=== PATIENT | male | born 1970 | race Caucasian/White ===

== ENCOUNTER 2016-05-12 09:38 | Inpatient (IN) | payer MEDICAID ==
[~2016-05-12] VITALS: Ht 182.9 cm; Wt 140.6 kg
[2016-05-12 09:45] VITALS: BP 138/100; PULSE 110; RESP 23; TEMP 98.5; O2SAT 93
--- NOTE | 2016-05-12 09:45 | NUR ---
Placed in room 02 . Placed on cardiac cath lab manager, blood pressure machine and pulse oximeter. To gown for exam. Side rails up. Report given to Blaire.
--- NOTE | 2016-05-12 10:00 | NUR ---
ER at bedside examining patient.
[2016-05-12] MEDS ORDERED: GLU500 PO (10:07)
--- NOTE | 2016-05-12 10:08 | NUR ---
Medication reconciliation completed with information provided by patient. Any prior medication reconciliation on file was reviewed and corrected.
--- NOTE | 2016-05-12 10:18 | NUR ---
Placed on awake overnight monitor, blood pressure machine and pulse oximeter. To gown for exam. Side rails up.
--- NOTE | 2016-05-12 10:21 | NUR ---
pt present ED c/o bilateral lower legs swelling with sob, no acute distress noted. lower extremities edema +2, pedal pulse are strong.
--- NOTE | 2016-05-12 10:23 | NUR ---
# 20 gauge angiocath placed to left hand. Use of asceptic technique. Opsite placed over site. Blood return noted. Blood for lab drawn from site. Flushed with 10 cc of normal saline. No evidence of infiltration noted. Patient tolerated well.
[2016-05-12 10:32] LABS: BASOPHILS # (AUTO) 0.1 K/uL (0.0-0.2); BASOPHILS % (AUTO) 1.1 % (0.0-2.0); EOSINOPHILS # (AUTO) 0.2 K/uL (0.0-0.4); EOSINOPHILS % (AUTO) 2.2 % (0.0-4.0); HEMATOCRIT 49.8 % (36-54); HEMOGLOBIN 15.8 g/dL (14.0-18.0); LYMPHOCYTES # (AUTO) 1.8 K/uL (1.0-5.5); LYMPHOCYTES % (AUTO) 20.9 % (20.5-51.5); MEAN CORPUSCULAR HEMOGLOBIN 30 pg (27-31); MEAN CORPUSCULAR HGB CONC 32 % (32-36); MEAN CORPUSCULAR VOLUME 94 fL (79.0-98.0); MONOCYTES # (AUTO) 0.7 K/uL (0.0-1.0); MONOCYTES % (AUTO) 8.3 % (1.7-9.3); NEUTROPHILS # (AUTO) 5.9 K/uL (1.8-7.7); NEUTROPHILS % (AUTO) 67.5 % (40.0-70.0); PLATELET COUNT (AUTO) 160 K/uL (130-430); RED BLOOD CELL COUNT(AUTO) 5.31 MIL/uL (4.2-6.2); RED CELL DISTRIBUTION WIDTH 14.4 % (9.0-15.0); WHITE BLOOD COUNT (AUTO) 8.7 K/uL (4.8-10.8)
[2016-05-12 10:42] LABS: INR 1.1 (0.80-1.20); PROTHROMBIN TIME 12.3 SECS (9.5-12.5)
--- NOTE | 2016-05-12 10:47 | NUR ---
doppler ultrasound bilateral legs at bed side
[2016-05-12 11:16] LABS: CALCIUM 8.4 mg/dL (8.4-11.0); POTASSIUM 4.6 mmol/L (3.5-5.1)
[2016-05-12 11:45] LABS: ALBUMIN 2.8 g/dL (3.4-4.8); TOTAL BILIRUBIN 1.4 mg/dL (0.0-1.0); TOTAL PROTEIN, SERUM 6.3 g/dL (6.4-8.3)
--- NOTE | 2016-05-12 12:17 | NUR ---
Dr. Gutierrez speaking with pt about plan of care
--- NOTE | 2016-05-12 12:25 | NUR ---
Call placed to Dietary for cardiac diet
[2016-05-12] MEDS ORDERED: FUROSEMIDE 40 MG/4 ML VIAL IVP ONE (12:30)
[2016-05-12] MEDS ORDERED: GLUXR500 PO (12:42)
--- NOTE | 2016-05-12 13:00 | NUR ---
[id number]: Received from ER on a gurney accompanied by the . Diagnosis is CHF. Oriented x4. Shortness of breath noted on exertion with oxygen saturation of 96% on room air. Noted with Edema 3+ on bilateral legs with. Multiple Sores and dried scabs noted on the legs. Oriented to room routine. Call light within reach.
--- NOTE | 2016-05-12 13:00 | NUR ---
Patient will be admitted to care of Dr johnson . Admitted to Tele unit. Will go to room 109A. Belongings list completed. Summary report printed. Report given to Iliana ACEVEDO .
[2016-05-12] MEDS ORDERED: NITROGLYCERIN 1 INCH (GM) OINT. TP ONE (13:15)
[2016-05-12] MEDS ORDERED: NITROGLYCERIN 0.4 MG TAB.SUBL SL PRN (13:15)
[2016-05-12] MEDS ORDERED: ASPIRIN 81 MG TAB.CHEW PO ONE (13:30)
--- NOTE | 2016-05-12 13:30 | NUR ---
Initial physical assessment: patient awake, alert and oriented. Ambulatory. I.V. access patent on saline lock. Multiple dry scab wounds on bilateral lower extremities. Able to make wants and needs known. Needs attended. Call light with in reach.
[2016-05-12 13:34] VITALS: BP 132/98; PULSE 108; RESP 20; TEMP 97.5; O2SAT 96
[2016-05-12] MEDS ORDERED: LISINOPRIL 10 MG TABLET (PRINIVIL) PO ONE (14:15)
--- NOTE | 2016-05-12 14:15 | NUR ---
CONSULT CARDIO CHF HIGH TROPOIN DR DHILLON [phone] DR TRIPLETT NITRIC ACID CONCENTRATOR OPERATOR S/W [employer] EXCHANGE @ [phone]
[2016-05-12 14:20] LABS: BILIRUBIN,URINE NEGATIVE (NEGATIVE); CLARITY/URINE SL HAZY (CLEAR); COLOR,URINE YELLOW (YELLOW); GLUCOSE,URINE 3+ (NEGATIVE); KETONES,URINE 1+ (NEGATIVE); LEUKOCYTE ESTERASE ,URINE NEGATIVE (NEGATIVE); NITRITE, URINE NEGATIVE (NEGATIVE); PROTEIN URINE TRACE (NEGATIVE); UROBILINOGEN,URINE 0.2 (0.2-1.0)
[2016-05-12 14:21] LABS: BLOOD, URINE TRACE (NEGATIVE)
[2016-05-12 14:39] LABS: BACTERIA,URINE RARE /HPF (None Seen); RBC,URINE 0-3 /HPF (0-3); WBC,URINE NONE SEEN /HPF (0-3)
--- NOTE | 2016-05-12 15:30 | NUR ---
rounds: patient resting. no distress noted.
[2016-05-12 16:18] VITALS: BP 131/98; PULSE 105; RESP 18; TEMP 97.9; O2SAT 96
--- NOTE | 2016-05-12 17:30 | NUR ---
BLOOD SUGAR: ACCU CHECK DONE. 413 MG/DL. 12 units novolog given. Informed patient not to eat the dinner but when came back to the room, he was already eating 25% of meal. Informed Dr. Gandhi.
[2016-05-12] MEDS: cefTRIAXone 1 GM in D5W 50 ML IV SCH (17:52)
[2016-05-12] MEDS: INSULIN ASPART 100 UNITS/ML, 10 ML VIAL (NovoLOG) SUBCUT PRN ×2 (18:07→21:21)
--- NOTE | 2016-05-12 18:50 | NUR ---
closing notes: pt on bed. no distress noted. i.v. access patent. call light within reach. report will be given at bedside.
[2016-05-12 20:01] LABS: THYROID STIMULATING HORMONE 1.16 uIu/mL (0.34-4.82)
--- NOTE | 2016-05-12 20:20 | NUR ---
MD/RN ROUNDS PATIENT SITTING UP IN BED, AOX4, VITALS STABLE. DENIES ANY PAIN OR DISCOMFORT AT THIS TIME. DR. TRIPLETT AT PATIENT'S BEDSIDE. IOANA PIERCE MADE AWARE OF PATIENT'S SECOND TROPONIN BEING ELEVATED, STATES NO NEED TO CALL HIM FOR FURTHER ELEVATED TROPONIN IN THE FUTURE.
[2016-05-12 21:00] VITALS: BP 120/80; PULSE 116; RESP 20; TEMP 96.8; O2SAT 92
[2016-05-12] MEDS ORDERED: INSULIN GLARGINE 100 UNITS/ML 10 ML VIAL SUBCUT SCH (21:00)
[2016-05-12] MEDS: FUROSEMIDE 40 MG/4 ML VIAL IVP SCH (21:13)
[2016-05-12] MEDS: CARVEDILOL 6.25 MG TABLET (COREG) PO SCH (21:14)
--- NOTE | 2016-05-12 22:08 | NUR ---
RN ROUNDS PATIENT RESTING QUIETLY IN BED, DUE MEDICATIONS ADMINISTERED. EDUCATED ON NEW MEDICATIONS AND SIDE EFFECTS, VERBALIZED UNDERSTANDING. BLOOD SUGAR CHECK THIS PM 357. INSULIN COVERED PER MD ORDER. REINFORCED SAFETY MEASURES TO PATIENT, CALL LIGHT WITHIN REACH, WILL CONTINUE TO MONITOR.
--- NOTE | 2016-05-13 00:05 | NUR ---
RN ROUNDS PATIENT SLEEPING, RESPIRATIONS EVEN AND UNLABORED. VITALS STABLE. SAFETY MEASURES IN PLACE. CALL LIGHT WITHIN REACH, WILL MONITOR.
[2016-05-13 00:15] VITALS: BP 112/49; PULSE 111; RESP 18; TEMP 97.4; O2SAT 94
--- NOTE | 2016-05-13 01:51 | NUR ---
RN ROUNDS PATIENT AWAKE, SITTING UP IN BED. NO SOB NOTED. REQUESTING FOR HS SNACK, NEEDS ATTENDED TO. SAFETY MEASURES IN PLACE. CALL LIGHT REMAINS WITHIN REACH, WILL CONTINUE TO MONITOR.
[2016-05-13 03:31] LABS: CALCIUM 8.8 mg/dL (8.4-11.0); CREATININE 1.29 mg/dL (0.55-1.30); POTASSIUM 3.9 mmol/L (3.5-5.1)
--- NOTE | 2016-05-13 04:08 | NUR ---
RN ROUNDS PATIENT SLEEPING, RESPIRATIONS EVEN AND UNLABORED. NO DISTRESS NOTED. VITALS STABLE. SAFETY MEASURES MAINTAINED. CALL LIGHT REMAINS WITHIN REACH, WILL CONTINUE TO MONITOR.
[2016-05-13 04:14] VITALS: BP 101/66; PULSE 100; RESP 20; TEMP 97.9; O2SAT 94
[2016-05-13] MEDS: ACETAMINOPHEN 325 MG TABLET PO PRN (05:51)
--- NOTE | 2016-05-13 06:20 | NUR ---
RN ROUNDS PATIENT AWAKE, NO SOB NOTED. C/O OF A HEADACHE, TYLENOL 650 MG ADMINISTERED. BLOOD SUGAR CHECK THIS AM 198. PATIENT REFUSED INSULIN PER SLIDING SCALE AT THIS TIME. STATES HE WANTS TO EAT BREAKFAST FIRST BEFORE INSULIN. SAFETY MEASURES MAINTAINED, CALL LIGHT REMAINS WITHIN REACH, WILL CONTINUE TO MONITOR.
[2016-05-13 06:30] LABS: BASOPHILS % (AUTO) 0.2 % (0.0-2.0); EOSINOPHILS # (AUTO) 0.3 K/uL (0.0-0.4); EOSINOPHILS % (AUTO) 3.4 % (0.0-4.0); HEMATOCRIT 45.7 % (36-54); HEMOGLOBIN 14.6 g/dL (14.0-18.0); LYMPHOCYTES # (AUTO) 1.8 K/uL (1.0-5.5); LYMPHOCYTES % (AUTO) 22.8 % (20.5-51.5); MEAN CORPUSCULAR HEMOGLOBIN 30 pg (27-31); MEAN CORPUSCULAR HGB CONC 32 % (32-36); MEAN CORPUSCULAR VOLUME 95 fL (79.0-98.0); MONOCYTES # (AUTO) 0.9 K/uL (0.0-1.0); MONOCYTES % (AUTO) 10.9 % (1.7-9.3); NEUTROPHILS # (AUTO) 4.9 K/uL (1.8-7.7); NEUTROPHILS % (AUTO) 62.7 % (40.0-70.0); PLATELET COUNT (AUTO) 159 K/uL (130-430); RED BLOOD CELL COUNT(AUTO) 4.82 MIL/uL (4.2-6.2); WHITE BLOOD COUNT (AUTO) 7.9 K/uL (4.8-10.8)
[2016-05-13 07:35] VITALS: BP 95/73; PULSE 103; RESP 18; TEMP 97.8
--- NOTE | 2016-05-13 08:00 | NUR ---
AM ASSESSMENT RECEIVED PT IN BED . A/OX4 DENIES ANY SOB OR CHEST PAIN. VITALS STABLE NOT IN ACUTE DISTRESS. SAFETY AND FALL RESCAUTIONES MAINTAINED. RES EVEN AND UNLABORED. CALLIGHT WITH IN REACH
[2016-05-13] MEDS: FAMOTIDINE 20 MG TABLET PO SCH (08:57)
[2016-05-13] MEDS: ASPIRIN 81 MG TAB.CHEW PO SCH (08:57)
[2016-05-13] MEDS: SPIRONOLACTONE 25 MG TABLET (ALDACTONE) PO SCH (08:58)
[2016-05-13] MEDS: LISINOPRIL 10 MG TABLET (PRINIVIL) PO SCH (08:58)
[2016-05-13] MEDS: FUROSEMIDE 40 MG/4 ML VIAL IVP SCH ×2 (08:59→21:10)
[2016-05-13] MEDS: CARVEDILOL 6.25 MG TABLET (COREG) PO SCH (09:04)
--- NOTE | 2016-05-13 10:00 | NUR ---
MEDS DUE MEDS GIVEN ORDERED. NOT IN ACUTE DISTRESS
[2016-05-13 12:00] VITALS: BP 105/71; PULSE 94; RESP 20; TEMP 96.8; O2SAT 94
--- NOTE | 2016-05-13 12:00 | NUR ---
BLOOD SUGAR BS 311. INSULIN GIVEN PER SS ORDERED. SEE EMAR. PT RESTING COMOFRTABLY
[2016-05-13] MEDS: INSULIN ASPART 100 UNITS/ML, 10 ML VIAL (NovoLOG) SUBCUT PRN ×3 (12:11→21:19)
[2016-05-13] MEDS ORDERED: IPRATROPIUM/ALBUTEROL SULFATE 3 ML AMPUL.NEB INH PRN (13:00)
--- NOTE | 2016-05-13 15:00 | NUR ---
MD VISIT SEEN BY DR FIORE AND DR VASQUEZ. NEW ORDER RECEIVED. PT STABLE . NO S/S OF DISTRESS NOTED
[2016-05-13] MEDS: cefTRIAXone 1 GM in D5W 50 ML IV SCH (15:07)
--- NOTE | 2016-05-13 15:25 | NUR ---
Wound Evaluation: Late note for 152 secondary to patient care. Wound Consult received from Dr. Gandhi. Thank you, Dr. Gandhi, for the consult. Patient received in a [place] bed with an Atmos-Air 9000 Mattress, awake, alert, oriented x 4. Skin is fair. Patient is able to turn in bed and ambulate independently. Juni score is a 20. Past Medical History: Diabetes Mellitus, on Metformin, status post Appendectomy. Recent labs: BUN 23, Creat 1.29, GFR 63, Gluc 197, BNP 274, PTT 22.4, D-Dimer 781, Trop 0.150/0.150/0.060. Intrinsic factors that delay wound healing: Diabetes Mellitus. Extrinsic factors that delay wound healing: Decreased mobility. No microbiology reports. Wound Assessment: 1) Left Lower Extremity: Multiple wounds with dry, black eschar/scabs. Dry, stable. No calor, no odor, no drainage. Dry, stable. 2) Right Lower Extremity: Multiple wounds with dry, black eschar/scabs. Dry, stable. No calor, no odor, no drainage. Dry, stable. Recommend: No dressings needed. Continue to monitor sites for opening or worsening condition. Contact wound career center advisor if wounds open or worsen. Also recommend: Encourage and assist patient as needed with repositioning every two hours with pillow support, and off-load pressure areas with pillows for pressure re-distribution. Offload, elevate and float bilateral heels with pillows. Perform skin care and monitor skin integrity q shift.
[2016-05-13] MEDS ORDERED: METOLAZONE 5 MG TABLET PO ONE (15:30)
[2016-05-13 16:43] VITALS: BP 103/77; PULSE 99; RESP 20; TEMP 96.4; O2SAT 95
--- NOTE | 2016-05-13 17:30 | NUR ---
BLOOD SUGAR BS 329. INSULIN GIVE PER SS. SEE EMAR. PT RESTING COMFORTABLY. DENIES PAIN OR SOB AT THIS TIME. FAMILY AT BED SIDE
--- NOTE | 2016-05-13 19:30 | NUR ---
closing notes pt stable. resting comfortably. no s/s of res distress noted. res even and labored. call light within reach. report given to edenilson rodriguez
[2016-05-13 20:00] VITALS: BP 125/81; PULSE 71; RESP 20; TEMP 97.8; O2SAT 94
--- NOTE | 2016-05-13 20:00 | NUR ---
RN ROUNDS PATIENT RESTING QUIETLY IN BED, RESPIRATIONS EVEN AND UNLABORED. NO SOB NOTED. ON ROOM AIR. VITALS STABLE. DENIES ANY PAIN OR DISCOMFORT AT THIS TIME. IV LINE TO LEFT HAND INTACT AND PATENT, NO SIGNS OF INFILTRATION NOTED. POC DISCUSSED WITH PATIENT. VERBALIZED UNDERSTANDING. CALL LIGHT WITHIN REACH, SAFETY MEASURES IN PLACE, WILL MONITOR.
[2016-05-13] MEDS: CARVEDILOL 12.5 MG TABLET (COREG) PO SCH (21:10)
[2016-05-13] MEDS ORDERED: CARVEDILOL 12.5 MG TABLET (COREG) ONE (21:11)
[2016-05-13] MEDS ORDERED: FUROSEMIDE 40 MG/4 ML VIAL ONE (21:11)
--- NOTE | 2016-05-13 22:00 | NUR ---
RN ROUNDS PATIENT RESTING QUIETLY IN BED, DUE MEDICATIONS ADMINISTERED EARLIER. WAS C/O OF SOB, RT WAS AT BEDSIDE ADMINISTERING BREATHING TX. BLOOD SUGAR CHECK THIS PM 352. INSULIN COVERED PER MD ORDER. REINFORCED SAFETY MEASURES TO PATIENT, VERBALIZED UNDERSTANDING. CALL LIGHT WITHIN REACH, WILL CONTINUE TO MONITOR.
--- NOTE | 2016-05-13 22:30 | NUR ---
notes; received report from Renetta ACEVEDO. Pt appeared to to be sleeping, eyes closed. Respiration even and unlabored. Safety measures in progress.
[2016-05-14] VITALS (8 sets, daily range): BP systolic 97–149; BP diastolic 59–99; PULSE 46–103; RESP 17–20; TEMP 97.2–98; O2SAT 92–100; Ht 182.9 cm; Wt 140.6 kg
--- NOTE | 2016-05-14 00:05 | NUR ---
NOTES; PT CALLED WITH C/O SOB. CHECKED ON PT. VITAL SIGNS STABLE, SAT 97% ON ROOM AIR. APPEARS TO BE COMFORTABLE. SAFETY MEASURES IN PROGRESS.
[2016-05-14] MEDS ORDERED: IPRATROPIUM/ALBUTEROL SULFATE 3 ML AMPUL.NEB ONE (00:23)
--- NOTE | 2016-05-14 02:10 | NUR ---
AWAKE, AMBULATING IN HALLWAY WITH BARE FEET. PT REFUSED NONSKID SOCKS. DENIES ANY PAIN AT THIS TIME. SAFETY MEASURES IN PROGRESS.
--- NOTE | 2016-05-14 04:37 | NUR ---
NOTES; AWAKE, IN BED. NO ACUTE DISTRESS NOTED. O2 SAT 96%. 3+ PITTING EDEMA TO BENI LEGS. PT CONTINUE TO DRINK LOTS OF WATER. ADVISED PT TO MINIMIZE THE WATER INTAKE. PER PT" MY DOCTOR SAID I SHOULD DRINK LOTS OF WATER SO DO I LISTEN TO YOU OR MY DOCTOR" " I WILL LISTEN TO MY DOCTOR". RN COVERING NOTIFIED. PT REFUSED BENI LOWER EXT TO BE ELEVATED ON PILLOW SUPPORT. SAFETY MEASURES IN PROGRESS.
[2016-05-14 07:16] LABS: BASOPHILS % (AUTO) 0.3 % (0.0-2.0); EOSINOPHILS # (AUTO) 0.3 K/uL (0.0-0.4); EOSINOPHILS % (AUTO) 3.4 % (0.0-4.0); HEMOGLOBIN 15.3 g/dL (14.0-18.0); LYMPHOCYTES # (AUTO) 2.5 K/uL (1.0-5.5); LYMPHOCYTES % (AUTO) 27.7 % (20.5-51.5); MEAN CORPUSCULAR HEMOGLOBIN 30 pg (27-31); MEAN CORPUSCULAR HGB CONC 32 % (32-36); MEAN CORPUSCULAR VOLUME 94 fL (79.0-98.0); MONOCYTES % (AUTO) 11.7 % (1.7-9.3); NEUTROPHILS # (AUTO) 5.1 K/uL (1.8-7.7); NEUTROPHILS % (AUTO) 56.9 % (40.0-70.0); PLATELET COUNT (AUTO) 182 K/uL (130-430); RED BLOOD CELL COUNT(AUTO) 5.08 MIL/uL (4.2-6.2); RED CELL DISTRIBUTION WIDTH 14.5 % (9.0-15.0); WHITE BLOOD COUNT (AUTO) 8.9 K/uL (4.8-10.8)
[2016-05-14 07:27] LABS: CALCIUM 8.6 mg/dL (8.4-11.0); CREATININE 1.31 mg/dL (0.55-1.30); POTASSIUM 3.6 mmol/L (3.5-5.1)
--- NOTE | 2016-05-14 07:30 | NUR ---
am rounds; report given by dariana at bedside. patient on the bed,awake,alert and oriented x4. iv saline lock at left hand intact. no sob this time. still with bilateral lower extremities swelling noted. continue to monitor.
[2016-05-14 07:33] LABS: ALBUMIN 2.9 g/dL (3.4-4.8); TOTAL BILIRUBIN 0.8 mg/dL (0.0-1.0); TOTAL PROTEIN, SERUM 6.1 g/dL (6.4-8.3)
[2016-05-14] MEDS: METOLAZONE 5 MG TABLET PO SCH (09:00)
[2016-05-14] MEDS: LISINOPRIL 10 MG TABLET (PRINIVIL) PO SCH (09:00)
--- NOTE | 2016-05-14 09:20 | NUR ---
meds/gtube: no residuals prior to giving meds. flushed with water after giving crushed meds. well tolerated. Addendum: 05/14/16 at 1144 by Doris Johnson RN corrected above notes: not intended for the above patient.
--- NOTE | 2016-05-14 10:10 | NUR ---
meds: took his meds well. lisinopril and xarosyln po not given low bp.
[2016-05-14] MEDS: ASPIRIN 81 MG TAB.CHEW PO SCH (10:18)
[2016-05-14] MEDS: FAMOTIDINE 20 MG TABLET PO SCH (10:18)
[2016-05-14] MEDS: SPIRONOLACTONE 25 MG TABLET (ALDACTONE) PO SCH (10:20)
[2016-05-14] MEDS: FUROSEMIDE 40 MG/4 ML VIAL IVP SCH ×2 (10:21→21:26)
[2016-05-14] MEDS: CARVEDILOL 12.5 MG TABLET (COREG) PO SCH ×2 (10:22→21:28)
[2016-05-14] MEDS: INSULIN ASPART 100 UNITS/ML, 10 ML VIAL (NovoLOG) SUBCUT PRN ×3 (11:19→21:35)
--- NOTE | 2016-05-14 11:30 | NUR ---
blood sugar: blood sugar taken,with insulin coverage given per sliding scale.
--- NOTE | 2016-05-14 12:15 | NUR ---
MEAL: LUNCH SERVED BY PROCESS DEVELOPMENT ENGINEER. EATING ADEQUATELY.
--- NOTE | 2016-05-14 13:55 | NUR ---
VS: C/O FAINTING.PT SITTING ON THE BED. ELIZABETH RN PLACED PT ON THE BED,VITAL SIGNS TAKEN,AFEBRILE AND STABLE. SAFETY MEASURES RENDERED. BED ALARM ON.
--- NOTE | 2016-05-14 14:25 | NUR ---
ROUNDS: PATIENT SLEEPING. STABLE.
[2016-05-14] MEDS: cefTRIAXone 1 GM in D5W 50 ML IV SCH (14:43)
--- NOTE | 2016-05-14 15:40 | NUR ---
ROUNDS: PATIENT SLEEPING DURING ROUNDS. STABLE.
--- NOTE | 2016-05-14 17:00 | NUR ---
blood sugar: blood sugar taken,with insulin coverage given per sliding scale.
--- NOTE | 2016-05-14 18:40 | NUR ---
closing notes: patient ate dinner. stable. needs attended to.
--- NOTE | 2016-05-14 20:00 | NUR ---
NOTES; PT IS SITTING UP IN CHAIR, WATCHING TV . NO SOB NOTED, VITAL SIGNS STABLE, AFEBRILE. RESPIRATIONS EVEN AND UNLABORED. PT IS ON ROOM AIR. DRY SCABS TO BENI LOWER EXT NOTED. 4+ PITTING EDEMA TO BENI LOWER EXT. LEG IS COLD AND TIGHT. ADVISED PT TO ELEVATE FEET WHILE SITTING UP RIGHT BUT PT REFUSED. IV SALINE LOCK TO THE LEFT HAND, GAUGE 20, PATENT. DENIES ANY PAIN OR DISCOMFORT AT THIS TIME. INSTRUCTED PT ON THE USE OF CALL LIGHT TO CALL FOR ANY NEED TO ASSIST. PT VERBALIZED UNDERSTANDING. BSAFETY MEASURES IN PROGRESS. CALL LIGHT AND BEDSIDE TABLE WITHIN REACH, WILL MONITOR.
[2016-05-14] MEDS: ACETAMINOPHEN 325 MG TABLET PO PRN (21:42)
--- NOTE | 2016-05-14 21:43 | NUR ---
NOTES; PT C/O 06/18 HEADACHE, TYLENOL 650MG O ADMINISTERED ALONG WITH SCHEDULED PO MEDICINE. BLOOD SUGAR FOUND TO BE 311. SCHEDULED AND SLIDING SCALE INSULIN ADMINISTERED ORDERED. WILL CONTINUE TO MONITOR. SNACK OF 1/2 SANDWICH ADMINISTERED PER PT REQUEST. WILL CONTINUE TO MONITOR.
--- NOTE | 2016-05-14 22:50 | NUR ---
NOTES; PT IS IN BED WATCHING TV. NO ACUTE DISTRESS NOTED. STATED EFFECTIVE PAIN MEDICATION.
--- NOTE | 2016-05-14 23:00 | NUR ---
NOTES; PT WALKED UP TO NURSES STATION WITHOUT CALLING OR USING CALL CORTES. PT STATED I DON'T FEEL WELL. BP CHECKED AND FOUND TO BE 110/70, HR 94, O2 SAT 92%. PT WANTED TO TALK. QUESTIONS ANSWERED . DENIES ANY PAIN AT THIS TIME. IN BED AT THIS TIME. REMINDED PT TO USE CALL LIGHT TO CALL FOR ANY NEED TO ASSIST. PT VERBALIZED UNDERSTANDING. SIDE TABLE AND URINAL WITHIN REACH. SAFETY MEASURES IN PROGRESS.
[2016-05-15] VITALS (7 sets, daily range): BP systolic 95–138; BP diastolic 52–87; PULSE 65–102; RESP 16–20; TEMP 96.7–97.4; O2SAT 88–99
--- NOTE | 2016-05-15 | NUR ---
NOTES; SITTING IN BED WATCHING TV. NO ACUTE DISTRESS NOTED. SAFETY MEASURES IN PROGRESS. WILL CONTINUE TO MONITOR.
--- NOTE | 2016-05-15 02:22 | NUR ---
NOTES; AWAKE, SNACK OF SANDWICH AND PUDDING SUGAR FREE PROVIDED. PT ATE 100%. NO APPARENT DISTRESS. DENIES ANY PAIN AT THIS TIME. SAFETY MEASURES IN PROGRESS.
--- NOTE | 2016-05-15 04:15 | NUR ---
NOTES; PT WALKED UP TO NURSES STATION WITHOUT CALLING OR USING CALL CORTES., ANDREA FEET. PT REFUSED NONSKID SOCKS. PT STATED I THINK I CANT BREATH. O2 SAT 90-91%. PT ASKED MANY QUESTION ABOUT GOING HOME, AND MEDS HE WILL TAKE HOME. QUESTIONS ANSWERED . DENIES ANY PAIN AT THIS TIME. IN BED AT THIS TIME. REMINDED PT TO USE CALL LIGHT TO CALL FOR ANY NEED TO ASSIST. PT VERBALIZED UNDERSTANDING. SIDE TABLE AND URINAL WITHIN REACH. SAFETY MEASURES IN PROGRESS.
[2016-05-15] MEDS: INSULIN ASPART 100 UNITS/ML, 10 ML VIAL (NovoLOG) SUBCUT PRN ×4 (06:11→21:08)
--- NOTE | 2016-05-15 06:50 | NUR ---
NOTES; O2 SAT 86% WHILE SLEEPING. PT AWAKEN, TOLD PT TO TAKE DEEP BREATHS. RECHECKED SAT 89. BENI LOWER EXT WITH 4+ EDEMA. PT REFUSED TO ELEVATE LEGS. DENIES ANY PAIN AT THIS TIME. ALL NEEDS ATTENDED. SAFETY MEASURES IN PROGRESS. FALL PRECAUTION IN PROGRESS. CALL LIGHT AND BED SIDE TABLE WITHIN REACH.
--- NOTE | 2016-05-15 07:18 | NUR ---
CALLED ATTENDING MD DR VASQUEZ, RE: ORDER FOR O2. SPOKE TO MICHAEL
[2016-05-15 07:20] LABS: CALCIUM 8.8 mg/dL (8.4-11.0); CREATININE 1.34 mg/dL (0.55-1.30); POTASSIUM 3.4 mmol/L (3.5-5.1)
--- NOTE | 2016-05-15 08:00 | NUR ---
INITIAL NOTES PT SITTING IN A CHAIR. DENIES ANY PAIN OR DISCOMFORT.O2 SAT 95% IN ROOM AIR. IVL. AMBULATE WITH STEADY GAIT. SAFETY PRECAUTION OBSERVED. NO ACUTE DISTRESS NOTED. WILL MONITOR.
[2016-05-15] MEDS: ASPIRIN 81 MG TAB.CHEW PO SCH (08:58)
[2016-05-15] MEDS: SPIRONOLACTONE 25 MG TABLET (ALDACTONE) PO SCH (08:58)
[2016-05-15] MEDS: METOLAZONE 5 MG TABLET PO SCH (08:58)
[2016-05-15] MEDS: FAMOTIDINE 20 MG TABLET PO SCH (08:59)
[2016-05-15] MEDS: LISINOPRIL 10 MG TABLET (PRINIVIL) PO SCH (08:59)
[2016-05-15] MEDS: CARVEDILOL 12.5 MG TABLET (COREG) PO SCH (08:59)
[2016-05-15] MEDS: FUROSEMIDE 40 MG/4 ML VIAL IVP SCH (09:00)
--- NOTE | 2016-05-15 10:00 | NUR ---
NOTES/ URINE IN BED, COMPLAINING THAT HE GAINS A LOT OF WEIGHT AND LASIX IS NOT HELPING HIM. PT STATED THAT HE URINATE A LITTLE BIT THIS MORNING. INSTRUCTED PT TO VOID IN THE URINAL. HE SAID HE'S BEEN DOING IT FOR THE PAST DAYS AND NOW HE IS VOIDING IN THE BATHROOM. COMPLAIN OF GENERALIZED PAIN. WANTS PAIN MED. WILL CALL
--- NOTE | 2016-05-15 10:49 | NUR ---
MD CALLED POULTRY FARM MANAGER SPOKE TO . PER SHE'S ON HER WAY TO SEE PT AND JUST GIVE TYLENOL FOR NOW. WENT TO PT ROOM. PT SLEEPING AT THIS TIME.
[2016-05-15] MEDS ORDERED: HYDROcodone/ACETAMIN 5-325 MG TAB (NORCO/ VICODIN) PO PRN (11:45)
[2016-05-15] MEDS ORDERED: POTASSIUM CHLORIDE 20 MEQ/PKT PACKET PO ONE (11:45)
--- NOTE | 2016-05-15 12:00 | NUR ---
NOTES SITTING IN A CHAIR, EATING LUNCH. FAMILY AT BEDSIDE. PT STATED THAT HE IS OK AT THIS TIME AND DOES NOT ANY PAIN MEDICATION.
--- NOTE | 2016-05-15 13:40 | NUR ---
02 sat PT O2 SAT AFTER WALKING IN ROOM AIR IS 88%.
--- NOTE | 2016-05-15 14:30 | NUR ---
ROUNDS IN BED, WITH EYES CLOSED. BREATHING EVEN AND UNLABORED.
[2016-05-15] MEDS: cefTRIAXone 1 GM in D5W 50 ML IV SCH (15:21)
--- NOTE | 2016-05-15 16:20 | NUR ---
ROUNDS IN BED, RESTING. DOES NOT NEED ANYTHING AT THIS TIME. ENC. TO CALL FOR HELP NEEDED. WILL MONITOR.
--- NOTE | 2016-05-15 18:16 | NUR ---
Nutrition Education RD provided nutrition education for diabetes management; please see teaching notes. RECOMMEND: referral to outpatient RD/consumer educator to review information in more depth.
--- NOTE | 2016-05-15 18:24 | NUR ---
NOTES SITTING IN A CHAIR, EATING DINNER. FAMILY AT BEDSIDE. IN ROOM AIR AT THIS TIME. DENIES ANY PAIN OR DISCOMFORT. NO ACUTE DISTRESS NOTED. ALL NEEDS MEET.
--- NOTE | 2016-05-15 18:26 | NUR ---
NOTES IN BED AWAKE, NO S/S OF PAIN OR DISCOMFORT. IVF INFUSING WELL. TURNED AND REPOSITIONED Q SHIFT. NO ACUTE DISTRESS NOTED. WILL ENDORSE
--- NOTE | 2016-05-15 20:00 | NUR ---
NOTES; PT IS SITTING UP IN CHAIR, WATCHING TV . NO SOB OR ACUTE DISTRESS NOTED. VITAL SIGNS STABLE, AFEBRILE. RESPIRATIONS EVEN AND UNLABORED. PT IS ON ROOM AIR, O2 SAT 93% WITH DEEP BREATHING . DRY SCABS TO BENI LOWER EXT NOTED. 4+ PITTING EDEMA TO BENI LOWER EXT. LEG IS COLD AND TIGHT. ADVISED PT TO ELEVATE FEET WHILE SITTING UP RIGHT BUT PT REFUSED. IV SALINE LOCK TO THE LEFT HAND, GAUGE 20, PATENT. DENIES ANY PAIN OR DISCOMFORT AT THIS TIME. INSTRUCTED PT ON THE USE OF CALL LIGHT TO CALL FOR ANY NEED TO ASSIST. PT VERBALIZED UNDERSTANDING. SAFETY MEASURES IN PROGRESS. CALL LIGHT AND BEDSIDE TABLE WITHIN REACH, WILL CONTINUE TO MONITOR.
[2016-05-15] MEDS: FUROSEMIDE 40 MG TABLET PO SCH (21:00)
[2016-05-15] MEDS: CARVEDILOL 25 MG TABLET (COREG) PO SCH (21:01)
--- NOTE | 2016-05-15 21:33 | NUR ---
NOTES; SCHEDULED PO MEDICINE ADMINISTERED. BLOOD SUGAR FOUND TO BE 238. SCHEDULED AND SLIDING SCALE INSULIN ADMINISTERED ORDERED. WILL CONTINUE TO MONITOR. SNACK OF 1/2 SANDWICH AND SUGAR FREE JELLO ADMINISTERED PER PT REQUEST. PT ATE 100%. WILL CONTINUE TO MONITOR.
--- NOTE | 2016-05-15 22:00 | NUR ---
NOTES; AMBULATED IN ROOM, O2 SAT 89% ON ROOM AIR.
--- NOTE | 2016-05-15 22:45 | NUR ---
NOTES; AWAKE, X2 SNACK OF SANDWICHES AND PUDDING SUGAR FREE PROVIDED. PT ATE 100%. NO APPARENT DISTRESS. DENIES ANY PAIN AT THIS TIME. SAFETY MEASURES IN PROGRESS.
--- NOTE | 2016-05-16 | NUR ---
NOTES; PT IS IN BED PLAYING ON HIS CELL PHONE. PT APPEARED TO BE IN NO DISTRESS. DENIES ANY PAIN AT THIS TIME. SAFETY MEASURES IN PROGRESS.
--- NOTE | 2016-05-16 00:15 | NUR ---
PT UPDATE: Patient sleeping comfortably at this time. No acute distress or SOB noted. Patient was reminded that he should elevate his legs with pillows that were provided but patient noted to not follow instructions. Will continue to monitor. Addendum: 05/17/16 at 0753 by Tatiana Rodriguez RN Wrong date entry:
[2016-05-16 00:58] VITALS: BP 110/73; PULSE 85; RESP 17; TEMP 97; O2SAT 100
--- NOTE | 2016-05-16 02:00 | NUR ---
NOTES; RESTING QUIETLY, EASILY AROUSED. NO ACUTE DISTRESS NOTED. SAFETY MEASURES IN PROGRESS,
[2016-05-16 04:00] VITALS: BP 100/66; PULSE 87; RESP 17; TEMP 97.6; O2SAT 100
--- NOTE | 2016-05-16 04:00 | NUR ---
NOTES; RESTING QUIETLY, EASILY AROUSED. NO ACUTE DISTRESS NOTED. SAFETY MEASURES IN PROGRESS.
[2016-05-16] MEDS: INSULIN ASPART 100 UNITS/ML, 10 ML VIAL (NovoLOG) SUBCUT PRN ×4 (06:14→21:12)
--- NOTE | 2016-05-16 06:30 | NUR ---
NOTES; BLOOD SUGAR FOUND TO BE 196. SLIDING SCALE INSULIN ADMINISTERED ORDERED. WILL CONTINUE TO MONITOR.
[2016-05-16 07:18] LABS: BASOPHILS % (AUTO) 0.3 % (0.0-2.0); EOSINOPHILS # (AUTO) 0.2 K/uL (0.0-0.4); EOSINOPHILS % (AUTO) 2.6 % (0.0-4.0); HEMATOCRIT 49.2 % (36-54); HEMOGLOBIN 15.8 g/dL (14.0-18.0); LYMPHOCYTES # (AUTO) 1.8 K/uL (1.0-5.5); LYMPHOCYTES % (AUTO) 26.8 % (20.5-51.5); MEAN CORPUSCULAR HEMOGLOBIN 30 pg (27-31); MEAN CORPUSCULAR HGB CONC 32 % (32-36); MEAN CORPUSCULAR VOLUME 92 fL (79.0-98.0); MONOCYTES # (AUTO) 0.7 K/uL (0.0-1.0); MONOCYTES % (AUTO) 10.4 % (1.7-9.3); NEUTROPHILS # (AUTO) 4.2 K/uL (1.8-7.7); NEUTROPHILS % (AUTO) 59.9 % (40.0-70.0); PLATELET COUNT (AUTO) 171 K/uL (130-430); RED BLOOD CELL COUNT(AUTO) 5.33 MIL/uL (4.2-6.2); WHITE BLOOD COUNT (AUTO) 6.9 K/uL (4.8-10.8)
--- NOTE | 2016-05-16 07:30 | NUR ---
Am Rounds: Received pt sitting semi-fowlers in bed and sleeping. Breathing even and unlabored on 1L via NC. No acute signs of distress or SOB noted. A&Ox4, IV intact to left hand. Pt is able to make needs known. No other needs noted at this time. Call light in reach. Continue to monitor.
--- NOTE | 2016-05-16 07:42 | NUR ---
CALLED ATTENDING MD DR VASQUEZ, RE: CHANGE OF CONDITION AND ORDERS. SPOKE TO ALEA
[2016-05-16 07:50] VITALS: BP 100/64; PULSE 85; RESP 20; TEMP 97.3; O2SAT 96
--- NOTE | 2016-05-16 07:50 | NUR ---
NOTES; PT C/O NAUSEA AND NOT FEELING WELL . BP CHECKED AND FOUND TO BE 95/57, HR 90, AFEBRILE, O2 SAT 92% WITH DEEP BREATHS ON ROOM AIR. DR DESIR CALLED, SPOKE WITH MD AND NOTIFIED ABOUT PT COMPLAINTS. DR VASQUEZ SAID SHE WILL PUT ORDERS IN FROM HOME. CHARGE NURSE VICKEY AND RICARDO ACEVEDO NOTIFIED.
[2016-05-16] MEDS ORDERED: METOCLOPRAMIDE HCL 10 MG/2 ML VIAL IVP ONE (08:00)
[2016-05-16 08:05] LABS: CALCIUM 8.9 mg/dL (8.4-11.0); CREATININE 1.36 mg/dL (0.55-1.30); POTASSIUM 3.4 mmol/L (3.5-5.1)
[2016-05-16 08:24] LABS: ABG TOTAL HEMOGLOBIN 16.1 G/dL (12.0-18.0); BLOOD GAS BASE EXCESS 3.9 mmol/L (-3.0-3.0); BLOOD GAS COHb% 1.8 % (0.5-1.5); BLOOD GAS HHB 18.5 % (0.0-6.0); BLOOD O2Hb% 79.7 % (94.0-97.0)
[2016-05-16] MEDS: ASPIRIN 81 MG TAB.CHEW PO SCH (08:50)
[2016-05-16] MEDS: FAMOTIDINE 20 MG TABLET PO SCH (08:50)
[2016-05-16] MEDS: SPIRONOLACTONE 25 MG TABLET (ALDACTONE) PO SCH (08:50)
[2016-05-16] MEDS: METOLAZONE 5 MG TABLET PO SCH (08:50)
[2016-05-16] MEDS: CARVEDILOL 25 MG TABLET (COREG) PO SCH ×2 (09:00→20:46)
[2016-05-16] MEDS: FUROSEMIDE 40 MG TABLET PO SCH ×2 (09:00→20:45)
[2016-05-16] MEDS: LISINOPRIL 10 MG TABLET (PRINIVIL) PO SCH (09:00)
--- NOTE | 2016-05-16 09:40 | NUR ---
RN Rounds: Pt sitting up in chair. C/o SOB, Dr. Gandhi aware, pt on 2L via NC. Instructed pt to elevated LE onto bed. Pt states, "I'll put them up". No other needs noted. AM meds given per MD order. Call light within reach. Continue to monitor.
--- NOTE | 2016-05-16 11:10 | NUR ---
Rounds: Pt sleeping in bed. Breathing even and unlabored on 2L via NC. Call light in reach. Continue to monitor.
--- NOTE | 2016-05-16 11:33 | NUR ---
DC PLANNING Order for dc planning for home O2. Called after hours CM @ [facility], ph [phone], to try & set up home O2. Have not received call back, also has direct nsg station number. Updated pt's nurse Oriana, most likely will not be able to set up today, CM/dc finished goods planner will f/u tomorrow.
[2016-05-16 12:22] VITALS: BP 113/53; PULSE 92; RESP 20; TEMP 97.9; O2SAT 100
[2016-05-16] MEDS ORDERED: POTASSIUM CHLORIDE 10 MEQ TAB.PRT.SR PO ONE (12:30)
--- NOTE | 2016-05-16 13:18 | NUR ---
Rounds: Per Dr. Gandhi, 1500mL fluid restriction. Dr. Gandhi is aware that home oxygen may not be delivered today. No other needs noted. No SOB or pain noted. Call light in reach. Continue to monitor.
[2016-05-16] MEDS: cefTRIAXone 1 GM in D5W 50 ML IV SCH (14:02)
--- NOTE | 2016-05-16 15:17 | NUR ---
Rounds: Iv antibiotics infusing well to LUE with no redness or swelling noted to site. Pt denies pain. Call light in reach. Continue to monitor pt closely.
[2016-05-16 16:18] VITALS: BP 128/73; PULSE 92; RESP 20; TEMP 96.9; O2SAT 95
--- NOTE | 2016-05-16 17:42 | NUR ---
Rounds: Pt educated on insulin types and injection technique per MD order. Pt able to successfully return demonstrate finger stick, draw up insulin Novolog based on sliding scale, and insulin administration into abdomen. Pt verbalizes understanding of insulin administration. No other needs noted. Pt denies SOB and pain at this time. Call light in reach. Dinner tray at bedside. Continue to monitor.
--- NOTE | 2016-05-16 18:47 | NUR ---
Closing Note: Pt sitting semi-fowlers in bed and resting. No SOB noted. Denies SOB and chest pain. Pt voids in urinal this shift. Saturating well 93% on 2L via NC. Awaiting delivery of home O2. No other needs noted at this time. Pt continues to refuse elevation in feet at this time. Call light in reach. No other needs noted at this time, IV intact to RUE. All needs met. Endorse plan of care to BETTIE ACEVEDO.
--- NOTE | 2016-05-16 19:15 | NUR ---
PM ASSESSMENT: Patient alert and oriented x 4. Able to make needs known verbally. Breathing even and unlabored. Afebrile. Left hand G20 on saline lock, patent and intact. No signs of redness or swelling on the IV site. BRP. Bilateral lower legs swelling. Bed brakes locked with 2 side rails up and bed in lowest level. All needs met. Denies any pain or discomfort. Placed call light within reach. Will continue to monitor.
[2016-05-16 20:00] VITALS: BP 133/77; PULSE 91; RESP 23; TEMP 97.8; O2SAT 98
--- NOTE | 2016-05-16 22:00 | NUR ---
INSULIN: Patient was given teaching how to administer his insulin. Patient was able to administer the insulin by himself correctly. All questions answered.
[2016-05-17] VITALS: BP 116/82; PULSE 82; RESP 17; TEMP 97.6; O2SAT 100
--- NOTE | 2016-05-17 00:15 | NUR ---
PT UPDATE: Patient sleeping comfortably at this time. No acute distress or SOB noted. Patient was reminded that he should elevate his legs with pillows that were provided but patient noted to not follow instructions. Will continue to monitor.
--- NOTE | 2016-05-17 02:33 | NUR ---
WALK: Patient awake and requested to walk around the nurses station to have his exercise. Patient has steady gait. No apparent problem noticed when walking. Denies any pain or discomfort. Patient in no acute distress or SOB after the short walk. Will continue to monitor.
[2016-05-17 04:00] VITALS: BP 121/76; PULSE 76; RESP 18; TEMP 98.6; O2SAT 100
[2016-05-17] MEDS: INSULIN ASPART 100 UNITS/ML, 10 ML VIAL (NovoLOG) SUBCUT PRN ×2 (06:23→12:20)
--- NOTE | 2016-05-17 06:45 | NUR ---
PT UPDATE: Patient was able to administer his insulin again correctly. Per patient, he is beginning to have confidence in administering insulin by himself. No SOB or acute distress noted at this time. Call light within reach. Will continue to monitor.
--- NOTE | 2016-05-17 07:15 | NUR ---
initial rounds: pt on bed sleeping. no distress noted. i.v. access patent. call light within reach. report given at bedside.
[2016-05-17 07:33] LABS: CREATININE 1.41 mg/dL (0.55-1.30); POTASSIUM 3.8 mmol/L (3.5-5.1)
[2016-05-17 08:00] VITALS: BP 116/77; PULSE 88; RESP 14; TEMP 97; O2SAT 97
--- NOTE | 2016-05-17 08:30 | NUR ---
rounds: pt walking in the hallway. stable.
[2016-05-17] MEDS: ASPIRIN 81 MG TAB.CHEW PO SCH (08:44)
[2016-05-17] MEDS: CARVEDILOL 25 MG TABLET (COREG) PO SCH (08:44)
[2016-05-17] MEDS: FUROSEMIDE 40 MG TABLET PO SCH (08:45)
[2016-05-17] MEDS: METOLAZONE 5 MG TABLET PO SCH (08:46)
[2016-05-17] MEDS: SPIRONOLACTONE 25 MG TABLET (ALDACTONE) PO SCH (08:46)
[2016-05-17] MEDS: FAMOTIDINE 20 MG TABLET PO SCH (08:46)
[2016-05-17] MEDS: LISINOPRIL 10 MG TABLET (PRINIVIL) PO SCH (08:47)
--- NOTE | 2016-05-17 08:49 | NUR ---
med pass: medication given and patient compliant.
--- NOTE | 2016-05-17 10:10 | NUR ---
DISCHARGE PLANNING DC planning order to arrange home O2. Called [facility] RISHABH/Jackelin Hassan Ext:[phone] is invalid ext. Spoke with financial reporting manager. who transferred call to in provider services. Spoke with Charmaine at Ext:[phone] who advised DCP to fax O2 order to [facility] [place]. Faxed DME order. will follow up. Addendum: 05/17/16 at 1346 by Mariel CURRIE Spoke with Pan[employer] at [employer] [place] who confirmed faxed order received and will return call with ANITA for portable to patient hospital room. DCP will follow up. Addendum: 05/17/16 at 1551 by Mariel Koehler DP Spoke with Pantera at [employer] [place] portable O2 scheduled to be delivered to patient hospital room between 3-5:30pm. KRISTINA Multani made aware.
--- NOTE | 2016-05-17 11:05 | NUR ---
Wound Re-Evaluation: Patient received in a Hague bed with an Atmos-Air 9000 Mattress, awake, alert, oriented x 4. Skin is fair. Patient is able to turn in bed and ambulate independently. Juni score is an 18. Intrinsic factors that delay wound healing: Diabetes Mellitus. Extrinsic factors that delay wound healing: Decreased mobility. Assessment provided by KRISTINA Multani. Wound Assessment: 1) Left Lower Extremity: Multiple wounds with dry, black eschar/scabs. Dry, stable. No calor, no odor, no drainage. Dry, stable. 2) Right Lower Extremity: Multiple wounds with dry, black eschar/scabs. Dry, stable. No calor, no odor, no drainage. Dry, stable. Recommend continue: No dressings needed. Continue to monitor sites for opening or worsening condition. Contact wound residential care officer if wounds open or worsen. Also recommend continue: Encourage and assist patient as needed with repositioning every two hours with pillow support, and off-load pressure areas with pillows for pressure re-distribution. Offload, elevate and float bilateral heels with pillows. Perform skin care and monitor skin integrity q shift.
--- NOTE | 2016-05-17 11:15 | NUR ---
rounds: pt on bed resting. no distress noted.
[2016-05-17 12:00] VITALS: BP 97/44; PULSE 90; RESP 21; TEMP 96; O2SAT 93
--- NOTE | 2016-05-17 12:24 | NUR ---
blood sugar test: educated patient doing the accu check and insulin administration. pt able to follow it. 203 mg/dl blood sugar and 4 units of novolog taken.
--- NOTE | 2016-05-17 12:52 | NUR ---
Social Service Note: Pt referred to 7th grade social studies teacher by bilingual case manager for referrals for pt's . POWER PROJECT MANAGER met with pt at bedside; pt states that he would like referrals for his due to her becoming anxious about pt's care. POWER PROJECT MANAGER provided pt with caregiver support groups and outpatient mental health providers for counseling. POWER PROJECT MANAGER encouraged pt to look over resources with his . POWER PROJECT MANAGER will remain available for support and will follow up as needed.
[2016-05-17] MEDS: cefTRIAXone 1 GM in D5W 50 ML IV SCH (13:53)
--- NOTE | 2016-05-17 13:59 | NUR ---
rounds: pt on bed resting with friend at bedside. no distress noted.
[2016-05-17 14:54] VITALS: BP 109/71; PULSE 80; RESP 14; TEMP 97; O2SAT 97
--- NOTE | 2016-05-17 16:00 | NUR ---
oxygen: oxygen delivered to use at home. patient wants to sleep and wait for the .
--- NOTE | 2016-05-17 17:00 | NUR ---
insulin: he refused insulin and states he will do it at home.
--- NOTE | 2016-05-17 18:00 | NUR ---
Oxygen use: pt. ready to go home. gave education on how to use the oxygen to the pt and family also listening. he verbalized understanding.
--- NOTE | 2016-05-17 18:05 | NUR ---
D/C Patient Patient given medication reconciliation form and D/C instructions. Exit Care provided. Patient verbalized understanding. MD discussed with patient the results and treatment provided. Ambulatory with steady gait for discharge to home. Patient in stable condition, ID band removed. IV catheter removed, intact and dressing applied, no active bleeding. Rx given. Patient educated on blood sugar test, insulin administration and oxygen use. All belongings sent with patient.
--- NOTE | 2016-05-20 10:55 | NUR ---
Discharge Follow Up Phone Call Investigative Writer phoned patient, , on 05/18/16, 05/19/16 and 05/20/16 and left voicemail messages with offer of assistance and Social Service contact information. Patient left a return voicemail on 05/18/16 with no information. No further calls will be attempted.
== END 2016-05-17 18:05 | disposition home or self-care (01) | DRG 194 ==
LOC: SED 09:38 → STU 12:20 → UNDODISIN 05-13 12:25
PROVIDERS: ADMIT Internal Medicine; ATTEND Internal Medicine
DX: I11.0 Hypertensive heart disease with heart failure (principal); I27.2 Other secondary pulmonary hypertension; E44.0 Moderate protein-calorie malnutrition; Z68.41 Body mass index [BMI] 40.0-44.9, adult; I42.9 Cardiomyopathy, unspecified; E66.01 Morbid (severe) obesity due to excess calories; Z90.49 Acquired absence of other specified parts of digestive tract; I50.9 Heart failure, unspecified; E11.9 Type 2 diabetes mellitus without complications; L03.119 Cellulitis of unspecified part of limb; Z79.899 Other long term (current) drug therapy
CPT/HCPCS: 36415; 36600; 71010; 80048; 80053; 80061; 81000-TC; 82803-TC; 82962; 83036; 83735-TC; 83880; 84443-TC; 84484; 85025; 85379; 85610-TC; 85730-TC; 93005; 93306; 93970; 94640; 96374; 99285; J0696; J1815; J1940; J2765; J7050; J7060

== ENCOUNTER 2016-05-24 13:15 | Inpatient (IN) | payer MEDICAID ==
[~2016-05-24] VITALS: Ht 182.9 cm; Wt 135.6 kg
[~2016-05-24 13:15] MED LIST: GLU500 PO; GLUXR500 PO
[2016-05-24 13:42] VITALS: BP 129/90; PULSE 81; RESP 18; TEMP 98.2; O2SAT 94
[2016-05-24] MEDS ORDERED: ALBUTEROL SULFATE 0.083% 2.5 MG/3 ML VIAL.NEB INH ONE (14:12)
[2016-05-24] MEDS ORDERED: IPRATROPIUM BROM 0.5 MG/2.5 ML VIAL.NEB (ATROVENT) INH ONE (14:13)
[2016-05-24 14:36] LABS: ABG TOTAL HEMOGLOBIN 15.4 G/dL (12.0-18.0); BLOOD GAS BASE EXCESS 3.6 mmol/L (-3.0-3.0); BLOOD GAS COHb% 1.1 % (0.5-1.5)
[2016-05-24 14:37] LABS: BLOOD GAS HHB 5.6 % (0.0-6.0)
[2016-05-24] MEDS ORDERED: FUROSEMIDE 100 MG/10 ML VIAL IVP ONE (14:45)
[2016-05-24 14:49] LABS: BASOPHILS # (AUTO) 0.1 K/uL (0.0-0.2); BASOPHILS % (AUTO) 0.8 % (0.0-2.0); EOSINOPHILS # (AUTO) 0.2 K/uL (0.0-0.4); EOSINOPHILS % (AUTO) 2.3 % (0.0-4.0); HEMATOCRIT 47.8 % (36-54); HEMOGLOBIN 15.1 g/dL (14.0-18.0); LYMPHOCYTES # (AUTO) 2.1 K/uL (1.0-5.5); LYMPHOCYTES % (AUTO) 24.9 % (20.5-51.5); MEAN CORPUSCULAR HEMOGLOBIN 30 pg (27-31); MEAN CORPUSCULAR HGB CONC 32 % (32-36); MEAN CORPUSCULAR VOLUME 94 fL (79.0-98.0); MONOCYTES # (AUTO) 0.8 K/uL (0.0-1.0); NEUTROPHILS # (AUTO) 5.4 K/uL (1.8-7.7); PLATELET COUNT (AUTO) 163 K/uL (130-430); RED BLOOD CELL COUNT(AUTO) 5.08 MIL/uL (4.2-6.2); RED CELL DISTRIBUTION WIDTH 14.2 % (9.0-15.0); WHITE BLOOD COUNT (AUTO) 8.6 K/uL (4.8-10.8)
[2016-05-24 15:13] LABS: INR 1.2 (0.80-1.20); PROTHROMBIN TIME 12.7 SECS (9.5-12.5)
[2016-05-24 15:18] LABS: CALCIUM 9.3 mg/dL (8.4-11.0); CREATININE 1.63 mg/dL (0.55-1.30); POTASSIUM 4.1 mmol/L (3.5-5.1)
[2016-05-24 15:23] LABS: ALBUMIN 3.1 g/dL (3.4-4.8); TOTAL BILIRUBIN 0.9 mg/dL (0.0-1.0); TOTAL PROTEIN, SERUM 6.8 g/dL (6.4-8.3)
[2016-05-24 17:46] VITALS: BP 132/92; PULSE 92; RESP 20; TEMP 97; O2SAT 95
[2016-05-24] MEDS ORDERED: INSU100V11 SQ (17:54)
[2016-05-24] MEDS ORDERED: INSU100V SQ (17:54)
[2016-05-24] MEDS ORDERED: DEXTROSE 50% JECT 50 ML DISP.SYRIN IVP PRN (19:15)
[2016-05-24] MEDS ORDERED: ALBUTEROL SULFATE 0.083% 2.5 MG/3 ML VIAL.NEB INH PRN (19:15)
[2016-05-24] MEDS ORDERED: IPRATROPIUM BROM 0.5 MG/2.5 ML VIAL.NEB (ATROVENT) INH PRN (19:15)
[2016-05-24 19:40] VITALS: BP 129/84; PULSE 86; RESP 18; TEMP 97.8; O2SAT 96
[2016-05-24 20:52] VITALS: BP 132/92; PULSE 88
[2016-05-24] MEDS ORDERED: ACETAMINOPHEN 325 MG TABLET PO PRN (21:15)
[2016-05-24] MEDS: FUROSEMIDE 40 MG/4 ML VIAL IVP SCH (22:04)
[2016-05-24] MEDS: MORPHINE 2 MG/ML INJ. SYRINGE IVP PRN (22:05)
[2016-05-24] MEDS: IPRATROPIUM BROM 0.5 MG/2.5 ML VIAL.NEB (ATROVENT) INH SCH (23:00)
[2016-05-24] MEDS: ALBUTEROL SULFATE 0.083% 2.5 MG/3 ML VIAL.NEB INH SCH (23:00)
[2016-05-24] MEDS: TEMAZEPAM 15 MG CAPSULE PO PRN (23:08)
[2016-05-24] MEDS: INSULIN REGULAR, HUMAN 100 UNITS/ML, 10 ML VIAL (novoLIN R) SUBCUT PRN (23:11)
[2016-05-25] MEDS: IPRATROPIUM BROM 0.5 MG/2.5 ML VIAL.NEB (ATROVENT) INH SCH ×6 (03:00→23:10)
[2016-05-25] MEDS: ALBUTEROL SULFATE 0.083% 2.5 MG/3 ML VIAL.NEB INH SCH ×6 (03:00→23:10)
[2016-05-25 04:49] VITALS: BP 113/81; PULSE 92; RESP 18; TEMP 96.7; O2SAT 94
[2016-05-25] MEDS: INSULIN REGULAR, HUMAN 100 UNITS/ML, 10 ML VIAL (novoLIN R) SUBCUT PRN ×4 (06:18→23:15)
[2016-05-25 08:31] VITALS: BP 107/75; PULSE 102; RESP 20; TEMP 97.7; O2SAT 92
[2016-05-25] MEDS: FUROSEMIDE 40 MG/4 ML VIAL IVP SCH ×2 (08:36→22:16)
[2016-05-25 11:26] LABS: CALCIUM 9.3 mg/dL (8.4-11.0); CREATININE 1.36 mg/dL (0.55-1.30); POTASSIUM 3.4 mmol/L (3.5-5.1)
[2016-05-25 11:31] LABS: ALBUMIN 3.1 g/dL (3.4-4.8); TOTAL BILIRUBIN 1.4 mg/dL (0.0-1.0); TOTAL PROTEIN, SERUM 6.7 g/dL (6.4-8.3)
[2016-05-25 12:30] VITALS: BP 139/86; PULSE 67; RESP 17; TEMP 97.4; O2SAT 92
[2016-05-25 16:26] VITALS: BP 143/91; PULSE 71; RESP 19; TEMP 98.9; O2SAT 94
[2016-05-25] MEDS: MORPHINE 4 MG/ML INJ. SYRINGE IVP PRN (17:21)
[2016-05-25 19:40] VITALS: BP 124/76; PULSE 101; RESP 20; TEMP 96.5; O2SAT 97
[2016-05-26] VITALS: BP 124/91; PULSE 100; RESP 20; TEMP 96.6; O2SAT 93
[2016-05-26] MEDS: TEMAZEPAM 15 MG CAPSULE PO PRN (01:09)
[2016-05-26] MEDS: IPRATROPIUM BROM 0.5 MG/2.5 ML VIAL.NEB (ATROVENT) INH SCH ×6 (03:00→23:15)
[2016-05-26] MEDS: ALBUTEROL SULFATE 0.083% 2.5 MG/3 ML VIAL.NEB INH SCH ×6 (03:00→23:15)
[2016-05-26 04:25] VITALS: BP 119/73; PULSE 105; RESP 20; TEMP 97.7; O2SAT 99
[2016-05-26] MEDS: INSULIN REGULAR, HUMAN 100 UNITS/ML, 10 ML VIAL (novoLIN R) SUBCUT PRN ×3 (06:00→17:34)
[2016-05-26] MEDS: FUROSEMIDE 40 MG/4 ML VIAL IVP SCH ×2 (08:06→20:02)
[2016-05-26 08:10] VITALS: BP 130/95; PULSE 110; RESP 20; TEMP 97.4; O2SAT 93
[2016-05-26] MEDS ORDERED: CARVEDILOL 6.25 MG TABLET (COREG) PO ONE (10:15)
[2016-05-26] MEDS ORDERED: LISINOPRIL 10 MG TABLET (PRINIVIL) PO ONE (10:15)
[2016-05-26 11:25] VITALS: BP 151/103; PULSE 109; RESP 19; TEMP 97.7; O2SAT 90
[2016-05-26 14:52] VITALS: Ht 182.9 cm; Wt 135.6 kg
[2016-05-26 15:38] VITALS: BP 117/71; PULSE 99; RESP 16; TEMP 98.5; O2SAT 96
[2016-05-26] MEDS: MORPHINE 4 MG/ML INJ. SYRINGE IVP PRN (17:37)
[2016-05-26] MEDS: CARVEDILOL 6.25 MG TABLET (COREG) PO SCH (20:01)
[2016-05-26] MEDS: MORPHINE 2 MG/ML INJ. SYRINGE IVP PRN (23:09)
[2016-05-27 00:06] VITALS: BP 108/67; PULSE 88; RESP 20; TEMP 97.6; O2SAT 96
[2016-05-27] MEDS: INSULIN REGULAR, HUMAN 100 UNITS/ML, 10 ML VIAL (novoLIN R) SUBCUT PRN ×5 (00:23→23:48)
[2016-05-27] MEDS: IPRATROPIUM BROM 0.5 MG/2.5 ML VIAL.NEB (ATROVENT) INH SCH ×6 (03:00→23:17)
[2016-05-27] MEDS: ALBUTEROL SULFATE 0.083% 2.5 MG/3 ML VIAL.NEB INH SCH ×6 (03:00→23:17)
[2016-05-27 04:16] VITALS: BP 112/72; PULSE 94; RESP 20; TEMP 98.8; O2SAT 91
[2016-05-27 07:25] VITALS: BP 116/80; PULSE 93
[2016-05-27 07:38] LABS: BASOPHILS % (AUTO) 0.2 % (0.0-2.0); EOSINOPHILS # (AUTO) 0.2 K/uL (0.0-0.4); EOSINOPHILS % (AUTO) 2.8 % (0.0-4.0); HEMATOCRIT 40.9 % (36-54); HEMOGLOBIN 13.3 g/dL (14.0-18.0); LYMPHOCYTES # (AUTO) 1.5 K/uL (1.0-5.5); LYMPHOCYTES % (AUTO) 22.6 % (20.5-51.5); MEAN CORPUSCULAR HEMOGLOBIN 31 pg (27-31); MEAN CORPUSCULAR HGB CONC 33 % (32-36); MEAN CORPUSCULAR VOLUME 94 fL (79.0-98.0); MONOCYTES # (AUTO) 0.7 K/uL (0.0-1.0); MONOCYTES % (AUTO) 11.4 % (1.7-9.3); NEUTROPHILS # (AUTO) 4.1 K/uL (1.8-7.7); PLATELET COUNT (AUTO) 123 K/uL (130-430); RED BLOOD CELL COUNT(AUTO) 4.35 MIL/uL (4.2-6.2); WHITE BLOOD COUNT (AUTO) 6.5 K/uL (4.8-10.8)
[2016-05-27 08:01] VITALS: BP 116/80; PULSE 94; RESP 19; TEMP 97.4; O2SAT 99
[2016-05-27 08:23] LABS: ALBUMIN 2.8 g/dL (3.4-4.8); CALCIUM 8.5 mg/dL (8.4-11.0); CREATININE 1.13 mg/dL (0.55-1.30); POTASSIUM 3.5 mmol/L (3.5-5.1); THYROID STIMULATING HORMONE 1.17 uIu/mL (0.34-4.82); TOTAL BILIRUBIN 1.2 mg/dL (0.0-1.0); TOTAL PROTEIN, SERUM 6.4 g/dL (6.4-8.3)
[2016-05-27] MEDS: FUROSEMIDE 40 MG/4 ML VIAL IVP SCH ×2 (08:37→20:14)
[2016-05-27] MEDS: SPIRONOLACTONE 25 MG TABLET (ALDACTONE) PO SCH (08:38)
[2016-05-27] MEDS: CARVEDILOL 6.25 MG TABLET (COREG) PO SCH (08:38)
[2016-05-27] MEDS: LISINOPRIL 10 MG TABLET (PRINIVIL) PO SCH (08:39)
[2016-05-27] MEDS: MORPHINE 2 MG/ML INJ. SYRINGE IVP PRN (08:44)
[2016-05-27 12:00] VITALS: BP 116/80; PULSE 95; RESP 20; TEMP 97.1; O2SAT 98
[2016-05-27 17:40] VITALS: BP 115/60; PULSE 96; RESP 20; TEMP 97; O2SAT 98
[2016-05-27] MEDS ORDERED: POTASSIUM CHLORIDE 20 MEQ TAB.PRT.SR PO ONE (18:45)
[2016-05-27] MEDS: CARVEDILOL 12.5 MG TABLET (COREG) PO SCH (20:13)
[2016-05-27] MEDS: METOLAZONE 5 MG TABLET PO SCH (20:13)
[2016-05-28 00:35] VITALS: BP 117/82; PULSE 95; RESP 19; TEMP 97.2; O2SAT 98
[2016-05-28] MEDS: MORPHINE 2 MG/ML INJ. SYRINGE IVP PRN (02:44)
[2016-05-28] MEDS: ALBUTEROL SULFATE 0.083% 2.5 MG/3 ML VIAL.NEB INH SCH ×4 (03:00→19:40)
[2016-05-28] MEDS: IPRATROPIUM BROM 0.5 MG/2.5 ML VIAL.NEB (ATROVENT) INH SCH ×4 (03:00→19:40)
[2016-05-28 04:29] VITALS: BP 126/82; PULSE 63; RESP 19; TEMP 98.7; O2SAT 98
[2016-05-28] MEDS: INSULIN REGULAR, HUMAN 100 UNITS/ML, 10 ML VIAL (novoLIN R) SUBCUT PRN ×4 (06:42→23:48)
[2016-05-28 07:47] LABS: ALBUMIN 2.9 g/dL (3.4-4.8); CALCIUM 8.6 mg/dL (8.4-11.0); CREATININE 1.18 mg/dL (0.55-1.30); POTASSIUM 3.6 mmol/L (3.5-5.1); TOTAL BILIRUBIN 1.3 mg/dL (0.0-1.0); TOTAL PROTEIN, SERUM 6.3 g/dL (6.4-8.3)
[2016-05-28 08:00] VITALS: BP 115/69; PULSE 91; RESP 18; TEMP 98.6; O2SAT 97
[2016-05-28] MEDS: FUROSEMIDE 40 MG/4 ML VIAL IVP SCH ×2 (09:51→21:55)
[2016-05-28] MEDS: LISINOPRIL 10 MG TABLET (PRINIVIL) PO SCH (09:51)
[2016-05-28] MEDS: CARVEDILOL 12.5 MG TABLET (COREG) PO SCH (09:52)
[2016-05-28] MEDS: SPIRONOLACTONE 25 MG TABLET (ALDACTONE) PO SCH (09:52)
[2016-05-28] MEDS: POTASSIUM CHLORIDE 20 MEQ TAB.PRT.SR PO SCH (09:53)
[2016-05-28] MEDS: METOLAZONE 5 MG TABLET PO SCH ×2 (10:01→21:55)
[2016-05-28 12:22] VITALS: BP 118/80; PULSE 94; RESP 18; TEMP 97.3; O2SAT 96
[2016-05-28 17:03] VITALS: BP 112/74; PULSE 87; RESP 17; TEMP 98.2; O2SAT 95
[2016-05-28 20:05] VITALS: BP 115/77; PULSE 87; RESP 20; TEMP 96.8; O2SAT 94
[2016-05-28] MEDS: CARVEDILOL 25 MG TABLET (COREG) PO SCH (21:57)
[2016-05-28] MEDS: MORPHINE 4 MG/ML INJ. SYRINGE IVP PRN (22:04)
[2016-05-29 00:17] VITALS: BP 129/81; PULSE 89; RESP 18; TEMP 98.2; O2SAT 96
[2016-05-29 04:22] VITALS: BP 123/86; PULSE 76; RESP 18; TEMP 98.6; O2SAT 97
[2016-05-29] MEDS: INSULIN REGULAR, HUMAN 100 UNITS/ML, 10 ML VIAL (novoLIN R) SUBCUT PRN ×4 (05:56→23:52)
[2016-05-29] MEDS: IPRATROPIUM BROM 0.5 MG/2.5 ML VIAL.NEB (ATROVENT) INH SCH ×5 (08:15→22:51)
[2016-05-29] MEDS: ALBUTEROL SULFATE 0.083% 2.5 MG/3 ML VIAL.NEB INH SCH ×5 (08:15→22:51)
[2016-05-29 09:51] VITALS: BP 117/64; PULSE 81; RESP 18; TEMP 97.7; O2SAT 92
[2016-05-29 10:00] VITALS: BP 117/64; PULSE 81; RESP 18; TEMP 97.7; O2SAT 92
[2016-05-29] MEDS: FUROSEMIDE 40 MG/4 ML VIAL IVP SCH ×2 (10:04→20:19)
[2016-05-29] MEDS: LISINOPRIL 10 MG TABLET (PRINIVIL) PO SCH (10:05)
[2016-05-29] MEDS: SPIRONOLACTONE 25 MG TABLET (ALDACTONE) PO SCH (10:05)
[2016-05-29] MEDS: POTASSIUM CHLORIDE 20 MEQ TAB.PRT.SR PO SCH (10:05)
[2016-05-29] MEDS: CARVEDILOL 25 MG TABLET (COREG) PO SCH ×2 (10:06→23:54)
[2016-05-29] MEDS: METOLAZONE 5 MG TABLET PO SCH ×2 (10:07→20:22)
[2016-05-29 16:17] VITALS: BP 97/69; PULSE 80; RESP 18; TEMP 97.2; O2SAT 96
[2016-05-29 19:30] VITALS: BP 105/69; PULSE 83; RESP 19; TEMP 97.7; O2SAT 95
[2016-05-30] VITALS (8 sets, daily range): BP systolic 98–126; BP diastolic 59–75; PULSE 56–93; RESP 18–20; TEMP 96.8–98.8; O2SAT 91–99
[2016-05-30] MEDS: ALBUTEROL SULFATE 0.083% 2.5 MG/3 ML VIAL.NEB INH SCH ×6 (03:00→23:20)
[2016-05-30] MEDS: IPRATROPIUM BROM 0.5 MG/2.5 ML VIAL.NEB (ATROVENT) INH SCH ×6 (03:00→23:21)
[2016-05-30] MEDS: MORPHINE 4 MG/ML INJ. SYRINGE IVP PRN (05:33)
[2016-05-30] MEDS: INSULIN REGULAR, HUMAN 100 UNITS/ML, 10 ML VIAL (novoLIN R) SUBCUT PRN ×3 (05:38→17:37)
[2016-05-30 06:48] LABS: BASOPHILS % (AUTO) 0.1 % (0.0-2.0); EOSINOPHILS # (AUTO) 0.2 K/uL (0.0-0.4); EOSINOPHILS % (AUTO) 3.3 % (0.0-4.0); HEMOGLOBIN 14.2 g/dL (14.0-18.0); LYMPHOCYTES # (AUTO) 1.4 K/uL (1.0-5.5); LYMPHOCYTES % (AUTO) 21.3 % (20.5-51.5); MEAN CORPUSCULAR HEMOGLOBIN 31 pg (27-31); MEAN CORPUSCULAR HGB CONC 33 % (32-36); MEAN CORPUSCULAR VOLUME 93 fL (79.0-98.0); MONOCYTES # (AUTO) 0.7 K/uL (0.0-1.0); MONOCYTES % (AUTO) 10.9 % (1.7-9.3); NEUTROPHILS # (AUTO) 4.5 K/uL (1.8-7.7); NEUTROPHILS % (AUTO) 64.4 % (40.0-70.0); PLATELET COUNT (AUTO) 114 K/uL (130-430); RED BLOOD CELL COUNT(AUTO) 4.64 MIL/uL (4.2-6.2); RED CELL DISTRIBUTION WIDTH 13.7 % (9.0-15.0); WHITE BLOOD COUNT (AUTO) 6.8 K/uL (4.8-10.8)
[2016-05-30 06:51] LABS: ALBUMIN 2.8 g/dL (3.4-4.8); CALCIUM 8.8 mg/dL (8.4-11.0); CREATININE 1.3 mg/dL (0.55-1.30); POTASSIUM 3.8 mmol/L (3.5-5.1); TOTAL PROTEIN, SERUM 6.5 g/dL (6.4-8.3)
[2016-05-30] MEDS: FUROSEMIDE 40 MG/4 ML VIAL IVP SCH ×2 (08:28→20:34)
[2016-05-30] MEDS: POTASSIUM CHLORIDE 20 MEQ TAB.PRT.SR PO SCH (08:29)
[2016-05-30] MEDS: SPIRONOLACTONE 25 MG TABLET (ALDACTONE) PO SCH (08:30)
[2016-05-30] MEDS: METOLAZONE 5 MG TABLET PO SCH ×2 (08:33→20:36)
[2016-05-30] MEDS: CARVEDILOL 25 MG TABLET (COREG) PO SCH ×2 (08:33→20:36)
[2016-05-30] MEDS: LISINOPRIL 10 MG TABLET (PRINIVIL) PO SCH (08:34)
[2016-05-31] VITALS (7 sets, daily range): BP systolic 95–127; BP diastolic 49–80; PULSE 17–88; RESP 17–20; TEMP 96.9–97.7; O2SAT 93–98
[2016-05-31] MEDS: INSULIN REGULAR, HUMAN 100 UNITS/ML, 10 ML VIAL (novoLIN R) SUBCUT PRN ×3 (00:07→17:22)
[2016-05-31] MEDS: TEMAZEPAM 15 MG CAPSULE PO PRN (00:08)
[2016-05-31] MEDS: MORPHINE 4 MG/ML INJ. SYRINGE IVP PRN ×2 (02:28→16:38)
[2016-05-31] MEDS: IPRATROPIUM BROM 0.5 MG/2.5 ML VIAL.NEB (ATROVENT) INH SCH ×4 (03:00→15:56)
[2016-05-31] MEDS: ALBUTEROL SULFATE 0.083% 2.5 MG/3 ML VIAL.NEB INH SCH ×4 (03:00→15:56)
[2016-05-31 07:27] LABS: BASOPHILS % (AUTO) 0.2 % (0.0-2.0); LYMPHOCYTES # (AUTO) 1.5 K/uL (1.0-5.5); LYMPHOCYTES % (AUTO) 22.8 % (20.5-51.5); NEUTROPHILS # (AUTO) 4.1 K/uL (1.8-7.7); RED BLOOD CELL COUNT(AUTO) 4.41 MIL/uL (4.2-6.2)
[2016-05-31 07:47] LABS: EOSINOPHILS # (AUTO) 0.2 K/uL (0.0-0.4); EOSINOPHILS % (AUTO) 3.3 % (0.0-4.0); HEMATOCRIT 41.6 % (36-54); HEMOGLOBIN 13.6 g/dL (14.0-18.0); MEAN CORPUSCULAR HEMOGLOBIN 31 pg (27-31); MEAN CORPUSCULAR HGB CONC 33 % (32-36); MEAN CORPUSCULAR VOLUME 94 fL (79.0-98.0); MONOCYTES # (AUTO) 0.7 K/uL (0.0-1.0); MONOCYTES % (AUTO) 11.3 % (1.7-9.3); NEUTROPHILS % (AUTO) 62.4 % (40.0-70.0); PLATELET COUNT (AUTO) 117 K/uL (130-430); RED CELL DISTRIBUTION WIDTH 13.9 % (9.0-15.0); WHITE BLOOD COUNT (AUTO) 6.5 K/uL (4.8-10.8)
[2016-05-31 07:49] LABS: ALBUMIN 2.8 g/dL (3.4-4.8); CALCIUM 8.9 mg/dL (8.4-11.0); CREATININE 1.44 mg/dL (0.55-1.30); POTASSIUM 3.8 mmol/L (3.5-5.1); TOTAL BILIRUBIN 0.9 mg/dL (0.0-1.0); TOTAL PROTEIN, SERUM 6.5 g/dL (6.4-8.3)
[2016-05-31] MEDS: POTASSIUM CHLORIDE 20 MEQ TAB.PRT.SR PO SCH (08:38)
[2016-05-31] MEDS: CARVEDILOL 25 MG TABLET (COREG) PO SCH (09:00)
[2016-05-31] MEDS: METOLAZONE 5 MG TABLET PO SCH (09:00)
[2016-05-31] MEDS: SPIRONOLACTONE 25 MG TABLET (ALDACTONE) PO SCH (09:00)
[2016-05-31] MEDS: LISINOPRIL 10 MG TABLET (PRINIVIL) PO SCH (09:00)
[2016-05-31] MEDS: FUROSEMIDE 40 MG/4 ML VIAL IVP SCH (09:51)
[2016-05-31] MEDS ORDERED: FURO80TA86 PO (14:00)
[2016-05-31] MEDS ORDERED: POTA20TA83 PO (14:01)
[2016-05-31] MEDS ORDERED: CARV25TA55 PO (14:01)
[2016-05-31] MEDS ORDERED: METO5TAB8 PO (14:02)
[2016-05-31] MEDS ORDERED: LISI10TA5 PO (14:03)
[2016-05-31] MEDS ORDERED: SPIR25TA PO (14:03)
[2016-05-31] MEDS ORDERED: FUROSEMIDE 80 MG TABLET PO SCH (21:00)
== END 2016-05-31 18:48 | disposition home or self-care (01) | DRG 194 ==
LOC: SED 13:15 → STU 16:24
PROVIDERS: ADMIT Internal Medicine Hospice and Palliative Medicine; ATTEND Internal Medicine Hospice and Palliative Medicine
DX: I11.0 Hypertensive heart disease with heart failure (principal); N17.9 Acute kidney failure, unspecified; Z68.41 Body mass index [BMI] 40.0-44.9, adult; E66.01 Morbid (severe) obesity due to excess calories; I42.0 Dilated cardiomyopathy; I27.2 Other secondary pulmonary hypertension; E44.1 Mild protein-calorie malnutrition; G93.3 Postviral and related fatigue syndromes; I50.21 Acute systolic (congestive) heart failure; E11.9 Type 2 diabetes mellitus without complications; Z79.4 Long term (current) use of insulin; L98.9 Disorder of the skin and subcutaneous tissue, unspecified; R06.01 Orthopnea; B34.9 Viral infection, unspecified; J44.9 Chronic obstructive pulmonary disease, unspecified
CPT/HCPCS: 36415; 36600; 71010; 80048; 80053; 80061; 82803-TC; 82962; 83880; 84443-TC; 84484; 85025; 85610-TC; 85730-TC; 87081; 93005; 94640; 94760; 96374; 99285; J1815; J1940; J2270

== ENCOUNTER 2016-06-08 21:55 | Emergency (ER) | payer MEDICAID ==
[2016-05-26 14:52] VITALS: Ht 182.9 cm; Wt 125.2 kg
[~2016-06-08] VITALS: Ht 182.9 cm; Wt 125.2 kg
[~2016-06-08 21:55] MED LIST changes: +CARV25TA55 PO; +FURO80TA86 PO; +INSU100V SQ; +INSU100V11 SQ; +LISI10TA5 PO; +METO5TAB8 PO; +POTA20TA83 PO; +SPIR25TA PO
[2016-06-08 22:00] VITALS: BP 130/83; PULSE 106; RESP 22; TEMP 97.3; O2SAT 93
--- NOTE | 2016-06-08 22:15 | NUR ---
Pt ambulatory to bed 6. Report given to KRISTINA Ruiz.
--- NOTE | 2016-06-08 22:25 | NUR ---
Pt brought in by in stable condition. Pt stated that he was laying down and was having difficulty breathing. Pt c/o groin pain 09/18. Pt is newly dx CHF and is on 80 mg of lasix BID. Pt O2 sat 96% on room air. -sob -chest pain. No acute distress noted at this time, will continue to monitor
--- NOTE | 2016-06-08 22:39 | NUR ---
ER at bedside examining patient.
--- NOTE | 2016-06-08 22:59 | NUR ---
Report given to KRISTINA Jefferson: All care assumed.
[2016-06-08] MEDS ORDERED: ALPRAZolam 0.25 MG TABLET PO ONE (23:00)
[2016-06-08 23:02] LABS: BASOPHILS % (AUTO) 0.7 % (0.0-2.0); EOSINOPHILS # (AUTO) 0.1 K/uL (0.0-0.4); HEMATOCRIT 42.7 % (36-54); HEMOGLOBIN 14.2 g/dL (14.0-18.0); LYMPHOCYTES # (AUTO) 1.5 K/uL (1.0-5.5); LYMPHOCYTES % (AUTO) 21.7 % (20.5-51.5); MEAN CORPUSCULAR HEMOGLOBIN 30 pg (27-31); MEAN CORPUSCULAR HGB CONC 33 % (32-36); MEAN CORPUSCULAR VOLUME 91 fL (79.0-98.0); MONOCYTES # (AUTO) 0.6 K/uL (0.0-1.0); MONOCYTES % (AUTO) 9.1 % (1.7-9.3); NEUTROPHILS # (AUTO) 4.8 K/uL (1.8-7.7); NEUTROPHILS % (AUTO) 66.5 % (40.0-70.0); PLATELET COUNT (AUTO) 157 K/uL (130-430); RED CELL DISTRIBUTION WIDTH 13.9 % (9.0-15.0)
[2016-06-08 23:07] LABS: CALCIUM 8.4 mg/dL (8.4-11.0); CHLORIDE 98 mmol/L (98-107); CREATININE 1.33 mg/dL (0.55-1.30); GLUCOSE 391 mg/dL (70-99); POTASSIUM 4.2 mmol/L (3.5-5.1); SODIUM SERUM 132 mmol/L (136-145); UREA NITROGEN, BLOOD 37 mg/dL (8-21)
[2016-06-08 23:12] LABS: ALANINE AMINOTRANSFERASE 55 U/L (12-78); ALBUMIN 3.3 g/dL (3.4-4.8); ASPARTATE AMINOTRANSFERASE 27 U/L (10-37); TOTAL BILIRUBIN 1.4 mg/dL (0.0-1.0); TOTAL PROTEIN, SERUM 6.6 g/dL (6.4-8.3)
[2016-06-08 23:18] LABS: GFR AFRICAN AMERICAN 74 mL/min (>90)
[2016-06-08 23:19] LABS: ANION GAP < 3 (5-15)
--- NOTE | 2016-06-08 23:55 | NUR ---
Patient given written and verbal discharge instructions and verbalizes understanding. ER MD discussed with patient the results and treatment provided. Patient in stable condition. ID arm band removed. Rx of xanax 1 mg given. Patient educated on pain management and to follow up with PMD. Pain Scale 0/10. Opportunity for questions provided and answered.
[2016-06-08 23:56] VITALS: BP 144/75; PULSE 98; RESP 18; TEMP 97.4; O2SAT 98
== END 2016-06-08 23:56 | disposition home or self-care (01) ==
LOC: SED 21:55
DX: I42.9 Cardiomyopathy, unspecified (principal); F41.9 Anxiety disorder, unspecified; Z79.899 Other long term (current) drug therapy
CPT/HCPCS: 36415; 80053; 83880; 84484; 85025; 93005; 99285

== ENCOUNTER 2016-07-27 02:34 | Emergency (ER) | payer MEDICAID ==
[2016-05-26 14:52] VITALS: Ht 182.9 cm; Wt 112.5 kg
[~2016-07-27] VITALS: Ht 182.9 cm; Wt 112.5 kg
[2016-07-27 02:35] VITALS: BP 124/89; PULSE 100; RESP 20; TEMP 97.4; O2SAT 96
--- NOTE | 2016-07-27 02:35 | NUR ---
Patient to ER bed 8 to gown for evaluation. Side rails up. Report given to Tatiana ACEVEDO.
--- NOTE | 2016-07-27 02:40 | NUR ---
Patient alert and oriented x 4 came in the ER with spouse with a complaint of sharp epigastric pain x 2 days and worsened at 11am yesterday morning. Patient also had nausea and vomiting. Denies having diarrhea, headache. No acute distress or SOB noted. Took Tylenol for pain yesterday at 11am.
--- NOTE | 2016-07-27 03:11 | NUR ---
ER at bedside examining patient.
[2016-07-27] MEDS ORDERED: KETOROLAC TROMETHAMINE 30 MG VIAL IVP ONE (03:15)
[2016-07-27] MEDS ORDERED: ONDANSETRON HCL 4 MG/2 ML VIAL IVP ONE (03:15)
[2016-07-27] MEDS ORDERED: NACL 0.9% 1,000 ML IV ONE (03:15)
[2016-07-27 03:38] LABS: BASOPHILS % (AUTO) 0.1 % (0.0-2.0); EOSINOPHILS # (AUTO) 0.2 K/uL (0.0-0.4); EOSINOPHILS % (AUTO) 2.2 % (0.0-4.0); HEMATOCRIT 48.1 % (36-54); HEMOGLOBIN 15.2 g/dL (14.0-18.0); LYMPHOCYTES # (AUTO) 1.1 K/uL (1.0-5.5); LYMPHOCYTES % (AUTO) 10.8 % (20.5-51.5); MEAN CORPUSCULAR HEMOGLOBIN 29 pg (27-31); MEAN CORPUSCULAR HGB CONC 32 % (32-36); MEAN CORPUSCULAR VOLUME 91 fL (79.0-98.0); MONOCYTES # (AUTO) 0.6 K/uL (0.0-1.0); MONOCYTES % (AUTO) 6.1 % (1.7-9.3); NEUTROPHILS # (AUTO) 7.9 K/uL (1.8-7.7); NEUTROPHILS % (AUTO) 80.8 % (40.0-70.0); PLATELET COUNT (AUTO) 184 K/uL (130-430); RED BLOOD CELL COUNT(AUTO) 5.28 MIL/uL (4.2-6.2); RED CELL DISTRIBUTION WIDTH 13.8 % (9.0-15.0); WHITE BLOOD COUNT (AUTO) 9.8 K/uL (4.8-10.8)
[2016-07-27 03:43] LABS: CALCIUM 8.7 mg/dL (8.4-11.0); CREATININE 1.12 mg/dL (0.55-1.30)
[2016-07-27 03:47] LABS: ALBUMIN 3.9 g/dL (3.4-4.8); TOTAL BILIRUBIN 2.5 mg/dL (0.0-1.0); TOTAL PROTEIN, SERUM 7.9 g/dL (6.4-8.3)
--- NOTE | 2016-07-27 05:02 | NUR ---
Patient given written and verbal discharge instructions and verbalizes understanding. ER MD discussed with patient the results and treatment provided. Given copies of tests performed in ER. Patient in stable condition. ID arm band removed. IV catheter removed intact and dressing applied, no active bleeding. Rx of zofran,motrin,norco given. Patient educated on pain management and to follow up with PMD. Pain Scale 0/10. Opportunity for questions provided and answered.
[2016-07-27 05:05] VITALS: BP 136/78; PULSE 78; RESP 18; TEMP 97.6; O2SAT 98
== END 2016-07-27 05:05 | disposition home or self-care (01) ==
LOC: SED 02:34
DX: R10.13 Epigastric pain (principal); R11.2 Nausea with vomiting, unspecified; I50.9 Heart failure, unspecified; Z79.4 Long term (current) use of insulin; Z90.49 Acquired absence of other specified parts of digestive tract
CPT/HCPCS: 36415; 80053; 83690; 85025; 96361; 96374; 96375; 99284; J1885; J2405; J7030

== ENCOUNTER 2016-08-17 10:24 | Emergency (ER) | payer MEDICAID ==
[~2016-08-17] VITALS: Ht 182.9 cm; Wt 112.5 kg
[~2016-08-17 10:24] MED LIST changes: -GLU500 PO; -GLUXR500 PO
[2016-08-17 10:33] VITALS: BP_SYST 123
[2016-08-17] MEDS ORDERED: HYDROcodone/ACETAMIN 10-325 MG TAB PO ONE (11:30)
[2016-08-17 14:18] LABS: BASOPHILS % (AUTO) 0.5 % (0.0-2.0); EOSINOPHILS # (AUTO) 0.2 K/uL (0.0-0.4); EOSINOPHILS % (AUTO) 2.5 % (0.0-4.0); HEMATOCRIT 45.7 % (36-54); HEMOGLOBIN 14.5 g/dL (14.0-18.0); LYMPHOCYTES # (AUTO) 1.6 K/uL (1.0-5.5); LYMPHOCYTES % (AUTO) 20.9 % (20.5-51.5); MEAN CORPUSCULAR HEMOGLOBIN 29 pg (27-31); MEAN CORPUSCULAR HGB CONC 32 % (32-36); MEAN CORPUSCULAR VOLUME 91 fL (79.0-98.0); MONOCYTES # (AUTO) 0.6 K/uL (0.0-1.0); MONOCYTES % (AUTO) 8.1 % (1.7-9.3); NEUTROPHILS # (AUTO) 5.3 K/uL (1.8-7.7); PLATELET COUNT (AUTO) 210 K/uL (130-430); WHITE BLOOD COUNT (AUTO) 7.7 K/uL (4.8-10.8)
[2016-08-17 14:28] LABS: CALCIUM 9.5 mg/dL (8.4-11.0); CREATININE 1.15 mg/dL (0.55-1.30)
[2016-08-17 14:29] LABS: INR 1.1 (0.80-1.20); PROTHROMBIN TIME 12.1 SECS (9.5-12.5)
[2016-08-17 14:33] LABS: ALBUMIN 3.6 g/dL (3.4-4.8); TOTAL BILIRUBIN 2.2 mg/dL (0.0-1.0); TOTAL PROTEIN, SERUM 7.8 g/dL (6.4-8.3)
[2016-08-17 15:30] LABS: BILIRUBIN,URINE NEGATIVE (NEGATIVE); BLOOD, URINE NEGATIVE (NEGATIVE); CLARITY/URINE CLEAR (CLEAR); COLOR,URINE YELLOW (YELLOW); GLUCOSE,URINE NEGATIVE (NEGATIVE); KETONES,URINE NEGATIVE (NEGATIVE); LEUKOCYTE ESTERASE ,URINE NEGATIVE (NEGATIVE); NITRITE, URINE NEGATIVE (NEGATIVE); PROTEIN URINE NEGATIVE (NEGATIVE)
[2016-08-17] MEDS ORDERED: IOHEXOL 100 ML IV ONE (15:37)
[2016-08-17 16:57] VITALS: BP_SYST 122
== END 2016-08-17 16:57 | disposition home or self-care (01) ==
LOC: SED 10:24
DX: R25.2 Cramp and spasm (principal); Z86.73 Personal history of transient ischemic attack (TIA), and cerebral infarction without residual deficits
CPT/HCPCS: 36415; 71010; 73552; 73700; 76881; 80053; 81003; 83880; 85025; 85610; 93005; 99285; Q9967

== ENCOUNTER 2018-06-15 01:21 | Emergency (ER) | payer MEDICAID ==
[2018-06-15] MEDS ORDERED: BACITRACIN 1 GM OINT TP ONE (01:45)
[2018-06-15] MEDS ORDERED: LIDOCAINE 1% 10 MG/ML, 20 ML MDV IJ ONE (01:45)
[2018-06-15 02:19] VITALS: BP_SYST 142
== END 2018-06-15 02:19 | disposition home or self-care (01) ==
LOC: SED 01:21
DX: S01.112A Laceration without foreign body of left eyelid and periocular area, initial encounter (principal); I11.0 Hypertensive heart disease with heart failure; I50.9 Heart failure, unspecified; Z90.89 Acquired absence of other organs; Z79.899 Other long term (current) drug therapy; W06.XXXA Fall from bed, initial encounter; Y93.89 Activity, other specified; Y92.89 Other specified places as the place of occurrence of the external cause; Y99.8 Other external cause status
CPT/HCPCS: 12011; 99283; J2001

== ENCOUNTER 2018-09-17 10:46 | Emergency (ER) | payer MEDICAID ==
[~2018-09-17] VITALS: Ht 182.9 cm; Wt 127.0 kg
[2018-09-17 10:46] VITALS: BP_SYST 0
[2018-09-17] MEDS ORDERED: EPINEPHrine JECT 1 MG/10 ML SYR IVP ONE (10:47)
[2018-09-17] MEDS ORDERED: SODIUM BICARBONATE 8.4% JECT 50 MEQ/50 ML SYRINGE IVP ONE (10:47)
[2018-09-17] MEDS ORDERED: CALCIUM CHLORIDE 1 GM/10 ML DISP.SYRIN (14 mEq Ca++/SYR) IVP ONE (10:47)
[2018-09-17 17:19] VITALS: BP_SYST 0
== END 2018-09-17 10:55 | disposition expired ==
LOC: SED 10:46
DX: I46.9 Cardiac arrest, cause unspecified (principal); I11.0 Hypertensive heart disease with heart failure; I50.9 Heart failure, unspecified; Z79.899 Other long term (current) drug therapy
CPT/HCPCS: 92950; 99285; J0171